=== PATIENT | male | born 1935 | race Caucasian/White ===

== ENCOUNTER → 2017-06-26 | Outpatient (CLI) | payer OTHER ==
[~2017-06-26] VITALS: Ht 175.3 cm; Wt 112.3 kg
[~2017-06-26] MED LIST: AGELESS MALE PO; APIX5TAB PO; ASPI325T PO; BUME0.5T PO; CART180C PO; CEPH-460 PO; CETI1TAB53 PO; CHLORHEXIDINE GLUCONATE 2 % 1 PACK (2 CLOTHS) TOPICAL PRN; CIPR-9 PO; CLIN150 PO; DEXTROSE 5% IN WATE 1000ML INJ 1,000 ML IV SCH; DIGO0.12 PO; DILT0.05 PO; DO NOT ADM ANY ANTICOAGULANT DRUGS PRN; FLUMAZENIL 0.5 MG/5 ML VIAL IV PUSH PRN; FOLI5CAP PO; GLIP1TAB60 PO; HYDR-3535 PO; INSULIN HUMAN REGULAR 1,000 UNITS/10 ML VIAL SQ PRN; IPRASOL INH; LACTATED RINGER'S 1000 ML IV PRN; LOSA100T PO; MEDR4PAK PO; METH2.5T PO; METO-309 PO; METO-338 PO; METOPROLOL TARTRATE 25 MG TAB PO PRN; MULT1TAB84 PO; NALOXONE HCL 0.4 MG/ML AMP IV PUSH PRN; OXYC1TAB63 PO; OXYGENTANK NAS.CANULA; PICC Daily Heparin 100 unit/mL Lock Flush IV FLUSH SCH; PICC PRN After Blood Draw NS Lock Flush IV FLUSH; PICC PRN Heparin 100 units/ml Lock Flush IV FLUSH; POVIDONE IODINE 5% (ANTISEPSIS KIT) 4 APPLICATIONS EACH NARE PRN; PROPOFOL 200 MG/20 ML AMP IV ONE; RESP: ALBUTEROL 2.5 MG/3 ML NEB (SCH) ONE; ROSU40 PO; SODIUM CHLORID 0.9% 500 ML IV PRN; SODIUM CHLORIDE 0.9% FLUSH 10 ML FLUSH IV FLUSH PRN; SODIUM CHLORIDE 0.9% FLUSH 10 ML FLUSH IV FLUSH SCH; SPIR25 PO; STOO100C; SYMB160A INH; TRAM50TA PO; VENTAER INH; VITA10002 PO; ZYRTTAB2 PO
--- NOTE | 2017-06-26 11:51 | EKG ---
Date Performed: 06/26/2017 Time Performed: 11:10:51 PTAGE: 81 years EKG: ELECTRONIC VENTRICULAR PACEMAKER ABNORMAL RHYTHM ECG PREVIOUS TRACING : 08/27/2016 19.54 No significant change from previous tracing noted DOCTOR: Carlos Barr Interpretating Date/Time 06/26/2017 11:50:35
[2017-06-26 13:16] VITALS: O2SAT 95
--- NOTE | 2017-06-26 15:35 | GIPROC ---
[facility] [address] [facility]. [facility], [address] COLONOSCOPY PROCEDURE REPORT EXAM DATE: 06/26/2017 PATIENT NAME: Wilfrid Genao MR #: [id number] BIRTHDATE: 1935 ENDOSCOPIST: Carly Holguin MD ORDER #: [id number] RES HABILITATION ASSISTANT: Tariq Sarmiento and Priscilla Beavers STATUS: outpatient INDICATIONS: The patient is a 81 yr old male here for a colonoscopy due to Anemia, Rectal bleeding, PROCEDURE PERFORMED: Total Colonoscopy with polypectomy with biopsy forceps, biopsy of large polyp, and tattooing. MEDICATIONS: See Anesthesia Record ESTIMATED BLOOD LOSS: None CONSENT: The patient understands the risks and benefits of the procedure and understands that these risks include, but are not limited to: sedation, allergic reaction, infection, perforation and/or bleeding. Alternative means of evaluation and treatment include, among others: physical exam, x-rays, and/or surgical intervention. The patient elects to proceed with this endoscopic procedure. DESCRIPTION OF PROCEDURE: checked for proper function. Hand hygiene and appropriate measures for infection prevention was taken. After the risks, benefits and alternatives of the procedure were thoroughly explained, Informed consent was verified, confirmed and timeout was successfully executed by the treatment team. A digital exam was performed. The endoscope was introduced through the anus and advanced to the cecum, which was identified by the appendiceal orifice, tri-radiate valve, and ileocecal valve. The prep quality was good. The instrument was then slowly withdrawn as the colon was fully examined. In the ascending colon, he was noted to have multiple small polyps, 3 were removed with biopsy forceps, and 2 were left alone. At the hepatic flexure, he had a 2-3 cm sessile polyp. This was too large to remove via the scope. Biopsies were taken and the area just distal was tattooed. Other than the moderate pancolonic diverticulosis, there were no mucosal abnormalities noted within the descending colon. In the sigmoid, 3 additional polyps were removed with snare polypectomy forceps and sent for biopsy. There were no abnormalities in the rectum. The scope was then completely withdrawn from the patient and the procedure terminated. ADVERSE EVENTS: There were no complications. WITHDRAWL TIME: DEGREE OF DIFFICULTY: IMPRESSIONS: Normal Colon RECOMMENDATIONS: Possible robotic ascending colectomy, if stable enough PATIENT CONDITION: Stable DISPOSITION: Home RECALL: Office visit 2-3 weeks Carly Holguin MD eSigned: Carly Holguni MD 06/26/2017 3:35 PM cc: Dr. Holguin PATIENT NAME: Wilfrid Genao MR#: [id number]
[2017-06-26 16:25] VITALS: BP 166/85; PULSE 97; RESP 22; TEMP 97.5; O2SAT 98
== END ==
LOC: HEND 10:48
PROVIDERS: ATTEND Colon & Rectal Surgery
DX: K62.5 Hemorrhage of anus and rectum (principal); D64.9 Anemia, unspecified; D12.3 Benign neoplasm of transverse colon; D12.2 Benign neoplasm of ascending colon; K57.90 Diverticulosis of intestine, part unspecified, without perforation or abscess without bleeding; R94.31 Abnormal electrocardiogram [ECG] [EKG]
CPT/HCPCS: 00810; 45380; 45381; 45385; 88305; 93005; 94664; J7120; J7613